=== PATIENT | male | born 1985 | race Caucasian/White ===

== ENCOUNTER 2016-05-27 18:10 | Emergency (ER) | payer BC ==
[~2016-05-27] VITALS: Ht 180.3 cm; Wt 79.4 kg
[2016-05-27 18:20] VITALS: BP 126/68; PULSE 85; RESP 17; TEMP 97.3; O2SAT 100
--- NOTE | 2016-05-27 18:20 | NUR ---
Patient to ER bed 7 to gown for evaluation. Side rails up. Report given to José CASTRO.
--- NOTE | 2016-05-27 18:21 | NUR ---
Pt here for repacking of wound to right lower leg, states he got it done at [facility] a few days ago, s/p I &D of abcess to area. Skin is warm, dry, no swelling, redness, or drainage noted to area. Pt denied pain to area, aftebrile.
--- NOTE | 2016-05-27 18:22 | NUR ---
Dr. Vallejo at bedside to assess pt.
[2016-05-27 19:10] VITALS: BP 130/70; PULSE 82; RESP 17; TEMP 97.6; O2SAT 100
--- NOTE | 2016-05-27 19:10 | NUR ---
Patient given written and verbal discharge instructions and verbalizes understanding. ER MD discussed with patient the results and treatment provided. Opportunity for questions provided and answered.
== END 2016-05-27 19:10 | disposition home or self-care (01) ==
LOC: SED 18:10 → EDSEX 18:10 → SED 19:10
DX: Z48.01 Encounter for change or removal of surgical wound dressing (principal)
CPT/HCPCS: 99281